=== PATIENT | female | born 1975 ===

== ENCOUNTER 2019-07-04 18:39 | Emergency (ER) | payer BC, OTHER ==
[~2019-07-04] VITALS: Ht 157.5 cm; Wt 100.5 kg
--- NOTE | 2019-07-04 20:48 | NUR ---
Pt called back into triage for repeat VS. Pt denies any change in symptoms since admission. Pt continues to be hypertensive in triage.
--- NOTE | 2019-07-04 21:08 | NUR ---
PT UP TO RESTROOM WITH STEADY GAIT, NADN
[2019-07-04 22:28] VITALS: BP 163/97
== END 2019-07-04 22:31 | disposition home or self-care (01) ==
LOC: ED 22:22
DX: R42 Dizziness and giddiness (principal)
CPT/HCPCS: 99283